=== PATIENT | male | born 1935 | race Caucasian/White ===

== ENCOUNTER → 2017-01-13 19:17 | Outpatient (CLI) | payer MEDICARE, BC ==
[2009-10-31 06:28] VITALS: BMI 27.8
== END | disposition home or self-care (01) ==
LOC: D.SLEEP 19:17
DX: G47.10 Hypersomnia, unspecified (principal)

== ENCOUNTER → 2017-03-13 08:55 | Outpatient (CLI) | payer MEDICARE, BC ==
[2009-10-31 06:28] VITALS: BMI 27.8
== END | disposition home or self-care (01) ==
LOC: D.RT 08:55
DX: R06.00 Dyspnea, unspecified (principal)

== ENCOUNTER → 2017-07-15 13:03 | Outpatient (CLI) | payer MEDICARE, BC ==
[2009-10-31 06:28] VITALS: BMI 27.8
== END | disposition home or self-care (01) ==
LOC: D.MRI 13:03
DX: G31.84 Mild cognitive impairment of uncertain or unknown etiology (principal)

== ENCOUNTER 2019-01-19 18:25 | Emergency (ER) | payer MEDICARE, BC ==
[~2019-01-19] VITALS: Ht 167.6 cm; Wt 68.2 kg
[2019-01-19 18:40] VITALS: Ht 167.6 cm; Wt 68.2 kg
[2019-01-19] MEDS ORDERED: WELLBUTRIN SR150 MG PO (18:43)
[2019-01-19] MEDS ORDERED: PLAVIX75 MG PO (18:43)
[2019-01-19] MEDS ORDERED: CELEXA20 MG PO (18:43)
[2019-01-19] MEDS ORDERED: EXELON1 PATCH .1 TRANSDERM (18:44)
[2019-01-19] MEDS ORDERED: SYNTHROID50 MCG PO (18:44)
[2019-01-19] MEDS ORDERED: NAMENDA10 MG PO (18:44)
[2019-01-19] MEDS ORDERED: ZYRTEC10 MG PO (18:45)
[2019-01-19] MEDS ORDERED: MILK OF MAGNESI30 ML PO (18:45)
[2019-01-19] MEDS ORDERED: TYLENOL PM1 TAB PO (18:46)
[2019-01-19] MEDS ORDERED: KEFLEX500 MG PO (20:36)
[2019-01-19] MEDS ORDERED: ULTRAM50 MG PO (20:36)
[2019-01-19 21:49] VITALS: BP 123/67
== END 2019-01-19 21:50 | disposition home or self-care (01) ==
LOC: D.ER 18:25
DX: S62.91XA Unspecified fracture of right hand, initial encounter for closed fracture (principal); W19.XXXA Unspecified fall, initial encounter; S61.214A Laceration without foreign body of right ring finger without damage to nail, initial encounter

== ENCOUNTER → 2020-06-29 13:06 | Outpatient (CLI) | payer MEDICARE, BC ==
[2019-01-19 18:40] VITALS: BMI 24.2
[~2020-06-29 13:06] MED LIST: CELEXA20 MG PO; EXELON1 PATCH .1 TRANSDERM; KEFLEX500 MG PO; MILK OF MAGNESI30 ML PO; NAMENDA10 MG PO; PLAVIX75 MG PO; SYNTHROID50 MCG PO; TYLENOL PM1 TAB PO; ULTRAM50 MG PO; WELLBUTRIN SR150 MG PO; ZYRTEC10 MG PO
== END | disposition home or self-care (01) ==
LOC: D.CT 13:06
PROVIDERS: ATTEND Family Medicine
DX: S06.0X0A Concussion without loss of consciousness, initial encounter (principal)